=== PATIENT | female | born 1955 | race Caucasian/White ===

== ENCOUNTER 2023-10-31 09:47 | Day surgery (SDC) | payer MEDICARE, OTHER ==
[2023-10-31] MEDS ORDERED: Depo-Medrol 40 MG/ML IM ONE (09:48)
[2023-10-31] MEDS ORDERED: BUPIVACAINE 0.5% VIAL IJ ONE (09:48)
[2023-10-31] MEDS ORDERED: DIPRIVAN 200 MG/20 ML IV ONE (12:20)
--- NOTE | 2023-10-31 12:38 | XRAY ---
Indication: Bilateral SI joint injection. Intraoperative fluoroscopy provided for 24 seconds. 3 digital spot image submitted for interpretation demonstrates posterior needle tips projecting over the left and right SI joint. Small amount of contrast injected for needle tip placement. Correlate with intraoperative findings/report.
--- NOTE | 2023-10-31 12:54 | XRAY ---
24 seconds of fluoroscopy was used in surgery for a bilateral sacroiliac joint injection.
[2023-10-31] MEDS ORDERED: Lactated Ringers 1,000 ML IV ONE (13:48)
== END 2023-10-31 12:55 | disposition home or self-care (01) ==
LOC: SDC-PAIN 09:47
PROVIDERS: ATTEND Psychiatry & Neurology Pain Medicine
DX: M46.1 Sacroiliitis, not elsewhere classified (principal); E11.9 Type 2 diabetes mellitus without complications
CPT/HCPCS: 01992; 27096; 72202; 77002; 82947; 93005; G0260; J1010; J2704; Q9966; J1030

== ENCOUNTER 2024-12-09 09:01 | Day surgery (SDC) | payer MEDICARE, OTHER ==
[2024-12-09] MEDS ORDERED: methylPREDNISolone acetate IM ONE (09:02)
[2024-12-09] MEDS ORDERED: Sodium Chloride 0.9(Preservative Free) 10 ML IJ ONE (09:02)
[2024-12-09] MEDS ORDERED: Lactated Ringers 1,000 ML IV ONE (11:01)
[2024-12-09] MEDS ORDERED: propofoL IV ONE (11:40)
--- NOTE | 2024-12-09 13:04 | XRAY ---
Indication: Lumbar EZIO. Intraoperative fluoroscopy provided for 17 seconds. 2 digital spot image submitted for interpretation demonstrates posterior needle tip projecting posterior to lumbosacral junction. Small amount of contrast injected for needle tip placement. Correlate with interoperative findings/report.
--- NOTE | 2024-12-09 13:11 | XRAY ---
17 seconds of fluoroscopy were used in surgery for a lumbar EZIO.
== END 2024-12-09 12:05 | disposition home or self-care (01) ==
LOC: SDC-PAIN 09:01
PROVIDERS: ATTEND Psychiatry & Neurology Pain Medicine
DX: M54.16 Radiculopathy, lumbar region (principal); E11.9 Type 2 diabetes mellitus without complications
CPT/HCPCS: 72100; 82947; J1010; J2704